=== PATIENT | female | born 1980 | race Caucasian/White ===

== ENCOUNTER 2017-06-02 07:51 | Emergency (ER) | payer BC, OTHER ==
[2017-06-02] MEDS ORDERED: methylPREDNISolone 125 MG* 2 ML VIAL IV ONE (08:55)
[2017-06-02] MEDS: NS 0.9% 1000 ML* 1,000 ML IV ONE ×2 (08:58→10:50)
[2017-06-02 09:32] LABS: Hematocrit 39 % (35-47); Mean Corpuscular HGB Conc 33 g/dl (31-36); Mean Corpuscular Hemoglobin 29 pg (27-31); Mean Corpuscular Volume 86 fL (80-97); Mean Platelet Volume 8 um3 (7.4-10.4); Red Blood Count 4.51 10^6/ul (4.0-5.4); Red Cell Distribution Width 14 % (10.5-15); White Blood Count 17.5 10^3/ul (3.5-10.8)
[2017-06-02 09:41] LABS: ALT 11 U/L (7-52); AST 12 U/L (13-39); Albumin 4.1 g/dL (3.2-5.2); Alkaline Phosphatase 121 U/L (34-104); Anion Gap 7 mmol/L (2-11); BUN/Creatinine Ratio 14.5 (8-20); Blood Urea Nitrogen 12 mg/dL (6-24); C Reactive Protein 95.32 mg/L (< 5.00); CO2 Carbon Dioxide 30 mmol/L (22-32); Calcium 9.3 mg/dL (8.6-10.3); Chloride 100 mmol/L (101-111); Creatine Kinase 57 U/L (10-223); EGFR African American 100.6 (>60); EGFR Non-African American 78.2 (>60); Globulin 3.4 g/dL (2-4); Glucose 99 mg/dL (70-100); Potassium 3.5 mmol/L (3.5-5.0); Sodium 137 mmol/L (133-145); Total Protein 7.5 g/dL (6.4-8.9)
[2017-06-02 09:45] LABS: Troponin I 0.01 ng/mL (<0.04)
--- NOTE | 2017-06-02 09:59 | RAD ---
HISTORY: Cough, fever, shortness of breath COMPARISONS: None VIEWS: 4: Frontal dual-energy and lateral views of the chest. FINDINGS: CARDIOMEDIASTINAL SILHOUETTE: The cardiomediastinal silhouette is normal. KALYAN: The kalyan are normal. PLEURA: The costophrenic angles are sharp. No pleural abnormalities are noted. LUNG PARENCHYMA: The lungs are clear. ABDOMEN: The upper abdomen is clear. There is no subphrenic gas. BONES AND SOFT TISSUES: No bone or soft tissue abnormalities are noted. OTHER: None. IMPRESSION: NO ACTIVE CARDIOPULMONARY DISEASE.
[2017-06-02] MEDS ORDERED: Azithromycin IV(*) 500 MG in NS 0.9% 250 ML* 250 ML IVPB ONE (10:34)
[2017-06-02] MEDS ORDERED: cefTRIAXone(*) 1 GM in NS 0.9% 50 ML* 50 ML IVPB ONE (10:34)
[2017-06-02] MEDS ORDERED: Ketorolac INJ* 30 MG/ML 1 ML VIAL IV PUSH ONE (10:40)
[2017-06-02 11:31] LABS: Erythrocyte Sed Rate 66 mm/Hr (0-14)
[2017-06-02 13:47] VITALS: BP 107/60
--- NOTE | 2017-06-02 13:51 | ED ---
Chano Kendrick Gabriel, scribed for Dorinda Mckeon MD on 06/02/17 at 0846 . HPI Febrile Illness - HPI Summary HPI Summary: This patient is a 36 year old F presenting to [facility] accompanied by her mother with a chief complaint of a sore throat since yest, and cough, congestion and fever since 05/25/17. The patient rates the pain 6/10 in severity but 10/10 on swallowing. Patient reports fever, general malaise, and nonproductive cough. Patient was seen at [facility] on 05/25/17 and diagnosed with bronchitis. She was given benzonatate, flovent inhaler, and albuterol inhaler from [facility]. She states they have not alleviated her symptoms. Pt takes Triam/HTZ as a diuretic for leg swelling, but did not take it today. She has not had her flu shot this year. - History of Current Complaint Chief Complaint: EDUpperRespComplaint Time Seen by Provider: 06/02/17 08:29 Hx Obtained From: Patient Onset/Duration: Started Days Ago - [address], one week for cough, fever, Atraumatic, Still Present Timing: Constant, Lasting Days Temperature: 100.3 F Initial Severity: Moderate Current Severity: Moderate Pain Intensity: 6 Pain Scale Used: 0-10 Numeric Aggravating Factors: Other: - swallowing Alleviating Factors: Nothing Associated Signs and Symptoms: Cough, Sore Throat, Other: - fever, general malaise, and nonproductive cough - Allergy/Home Medications Allergies/Adverse Reactions: Allergies Allergy/AdvReac Type Severity Reaction Status Date / Time No Known Allergies Allergy Verified 06/02/17 07:52 PMH/Surg Hx/FS Hx/Imm Hx Previously Healthy: Yes Cardiovascular History: Denies: Hx Cardiomegaly, Hx Congenital Heart Disease, Hx Congestive Heart Failure Respiratory History: Denies: Hx Asthma, Hx Chronic Obstructive Pulmonary Disease (COPD) - Surgical History Surgery Procedure, Year, and Place: 2 c sections Infectious Disease History: No Infectious Disease History: Denies: Traveled Outside the [place] in Last 30 Days - Family History Known Family History: Positive: Cardiac Disease, Hypertension, Other - cancer - Social History Alcohol Use: Rare Hx Substance Use: No Substance Use Type: Reports: None Hx Tobacco Use: No Smoking Status (MU): Never Smoked Tobacco Review of Systems Positive: Fever, Other - general malaise Positive: Sore Throat Cardiovascular: Negative Positive: Cough Gastrointestinal: Negative Neurological: Negative Psychological: Normal All Other Systems Reviewed And Are Negative: Yes Physical Exam - Summary Physical Exam Summary: Appearance: Ill-appearing, no pain distress, Well-nourished, [employer] cough Skin: Warm, color reflects adequate perfusion Head: Normal Head/Face appearance Eyes: Conjunctiva clear ENT: Tonsils are swollen bilaterally but no exudate, anterior bilateral cervical lymphadenopathy Neck: Supple, LN as above Respiratory: Lungs clear, Normal breath sounds, no respiratory distress Cardio: RRR, No murmur, pulses normal, brisk capillary refill Abdomen: soft, nontender Musculoskeletal: Strength Intact/ ROM intact, no calf tenderness or edema Neuro: Alert, muscle tone normal,facial symmetry, speech normal, sensory/motor intact Psych: normal Triage Information Reviewed: Yes Vital Signs On Initial Exam: Initial Vitals Temp Pulse Resp BP Pulse Ox 99.4 F 110 17 119/68 97 06/02/17 07:52 06/02/17 07:52 06/02/17 07:52 06/02/17 07:52 06/02/17 07:52 Vital Signs Reviewed: Yes Diagnostics - Vital Signs Vital Signs Temp Pulse Resp BP Pulse Ox 06/02/17 07:52 99.4 F 110 17 119/68 97 - Laboratory Result Diagrams: 06/02/17 08:45 06/02/17 08:45 Lab Statement: Any lab studies that have been ordered have been reviewed, and results considered in the medical decision making process. - Radiology CXR Radiology Interpretation Completed By: Radiologist - NO ACTIVE CARDIOPULMONARY DISEASE. ED physician has reviewed this radiology report. - EKG 1051 Cardiac Rate: NL EKG Rhythm: Sinus Rhythm - at [address] Segment: Non-Specific EKG Interpretation: Q in 3, axis is -29, nml QTc, nml AV/IV conduction Re-Evaluation - Re-Evaluation First Eval Re-Evaluation Time: 14:00 Change: Improved - feels better after fluids and first doses of IV antibiotics. Course/Dx - Course Assessment/Plan: An EKG reveals Q in 3, axis -29, nml QTc, nml AV/IV conduction. CXR reveals, per radiologist, NO ACTIVE CARDIOPULMONARY DISEASE. rapid strep neg. 10:03 Meets SIRS criteria, possible sepsis because she is tachycardic and her temp is 100.3 and wbc count is 17.3. In the ED course the patient was given toradol, solumedrol, IV fluids, ceftriaxone, and azithromycin. Pt is improved after all of the above. Not septic. Patient will be discharged with prescription for cephalexin and azithromycin, treatment for CAP, continue inhalers, and follow up from Dr. Espino. The patient and mother are agreeable with this plan. - Febrile Illness Differential Diagnoses: Fever of Unknown Origin, Pneumonia, Sepsis, Other: - bronchitis - Diagnoses Provider Diagnoses: Bronchitis, SIRS criteria , Pharyngitis Discharge - Discharge Plan Condition: Stable Disposition: HOME Prescriptions: Azithromycin TAB* [Zithromax TAB (Z-EDGAR) 250 mg #6 tabs] 250 mg PO DAILY #4 tab Cephalexin CAP* [Keflex 500 CAP*] 500 mg PO QID #40 cap predniSONE TAB* [Deltasone TAB*] 40 mg PO DAILY #10 tab Patient Education Materials: Cephalexin (By mouth), Azithromycin (By mouth), Acute Bronchitis (ED), Bronchospasm (ED) Forms: *Work Release Referrals: Mariangel Whatley MD [Medical Doctor] - 2 Days Additional Instructions: Your white blood cell count was 17.5 which is very elevated, and you have fever and fast heart rate and rapid breathing in the ER. We gave you IV steroids and IV ceftriaxone and IV azithromycin. We are continuing these medications as an outpatient. Your xray did not show actual pneumonia, but we are treating this as clinical pneumonia because of the signs of sepsis and infection that you had. You should have definite follow up with Dr. Whatley in 1-2 days. Call her today to arrange the follow up. Return to the ER if you have new or worsening symptoms. The documentation as recorded by the Chano jerez Gabriel accurately reflects the service I personally performed and the decisions made by , Dorinda Mckeon MD.
[2017-06-02 14:25] LABS: Urine Bacteria Absent (Absent); Urine Bilirubin Negative (Negative); Urine Glucose Negative (Negative); Urine Nitrite Negative (Negative)
== END 2017-06-02 14:21 | disposition home or self-care (01) ==
LOC: ED 07:51
DX: R65.10 Systemic inflammatory response syndrome (SIRS) of non-infectious origin without acute organ dysfunction (principal); J40 Bronchitis, not specified as acute or chronic; R50.9 Fever, unspecified; J02.9 Acute pharyngitis, unspecified
CPT/HCPCS: 36415; 71020; 80053; 81003; 82550; 82553; 83605; 83880; 84484; 84702; 85025; 85379; 85610; 85652; 86140; 87040; 87502; 87651; 93005; 96374; 96375; 99283; J0456; J0696; J1885; J2930

== ENCOUNTER 2017-08-29 09:14 | Emergency (ER) | payer BC ==
[2017-08-29 09:21] VITALS: BP 118/71
--- NOTE | 2017-08-29 09:46 | UC ---
Respiratory Complaint HPI - HPI Summary HPI Summary: 36 yo WF c/o pleuritic CP with cough associated with green sputum with onset of URI 2 weeks ago, left ear pain also. - History of Current Complaint Chief Complaint: UCGeneralIllness Stated Complaint: SORE THROAT, AND COUGH Time Seen by Provider: 08/29/17 09:28 Hx Obtained From: Patient ?: No Onset/Duration: Lasting Days Severity Initially: Moderate Severity Currently: Moderate Pain Intensity: 8 - Allergies/Home Medications Allergies/Adverse Reactions: Allergies Allergy/AdvReac Type Severity Reaction Status Date / Time No Known Allergies Allergy Verified 08/29/17 09:21 PMH/Surg Hx/FS Hx/Imm Hx Previously Healthy: Yes - Surgical History Surgical History: Yes Surgery Procedure, Year, and Place: 2 c sections - Family History Known Family History: Positive: Cardiac Disease, Hypertension, Other - cancer - Social History Alcohol Use: Occasionally Substance Use Type: None Smoking Status (MU): Never Smoked Tobacco - Immunization History Most Recent Tetanus Shot: "I don't remember" Review of Systems Constitutional: Chills Skin: Negative Eyes: Negative ENT: Ear Ache Respiratory: Cough Cardiovascular: Negative Gastrointestinal: Negative Genitourinary: Negative Motor: Negative Neurovascular: Negative Musculoskeletal: Negative Neurological: Negative Psychological: Negative All Other Systems Reviewed And Are Negative: Yes Physical Exam Triage Information Reviewed: Yes Vital Signs: Initial Vital Signs Temp 36.7 C 08/29/17 09:16 Pulse 88 08/29/17 09:16 Resp 18 08/29/17 09:16 BP 118/71 08/29/17 09:16 Pulse Ox 99 08/29/17 09:16 Eye Exam: Normal ENT Exam: Normal ENT: Positive: TM red - LEFT, NO effusion Dental Exam: Normal Neck exam: Normal Neck: Positive: Enlarged Nodes @ - and tenderness anterior cervical and posterior auricular LN B/L Respiratory: Positive: Rhonchi Cardiovascular Exam: Normal Abdominal Exam: Normal Musculoskeletal Exam: Normal Neurological Exam: Normal Psychological Exam: Normal Skin Exam: Normal UC Diagnostic Evaluation - Laboratory O2 Sat by Pulse Oximetry: 99 Respiratory Course/Dx - Course Course Of Treatment: rapid strep neg - Differential Dx/Diagnosis Provider Diagnoses: acute bronchitis. left OM Discharge - Discharge Plan Condition: Stable Disposition: HOME Prescriptions: Azithromycin TAB* [Zithromax TAB (Z-EDGAR) 250 mg #6 tabs] 2 tab PO .TODAY, THEN 1 DAILY #1 edgar Patient Education Materials: Ear Infection (ED), Acute Bronchitis (ED) Referrals: Mariangel Whatley MD [Primary Care Provider] - Additional Instructions: Mucinex DM over the counter for cough and take antibiotics as directed
== END 2017-08-29 09:50 | disposition home or self-care (01) ==
LOC: UCEAST 09:14
DX: J20.9 Acute bronchitis, unspecified (principal); H66.92 Otitis media, unspecified, left ear
CPT/HCPCS: 87651; 99212; G0463

== ENCOUNTER 2017-10-20 18:04 | Emergency (ER) | payer BC ==
[2017-10-20 18:19] VITALS: BP 112/55
--- NOTE | 2017-10-20 19:32 | UC ---
Hand/Wrist HPI - HPI Summary HPI Summary: Patient is an otherwise healthy 37-year-old female presenting to the with chief complaint of left hand swelling and wrist pain with worsening pain at the base of the left thumb. 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 She is noticed worsening symptoms over the past several weeks as she has been doing this job more frequently. She has never been diagnosed with an overuse injury or carpal tunnel. She has not taken anything for relief, including ibuprofen and ice. The hand has a mild amount of swelling to it, but she denies any range of motion issues including flexion and extension and pronation and supination. - History Of Current Complaint Chief Complaint: UCUpperExtremity Stated Complaint: HAND INJURY Time Seen by Provider: 10/20/17 18:13 Hx Obtained From: Patient Hx Last Menstrual Period: 10/09/17 ?: No Onset/Duration: Sudden Onset Severity Initially: Mild Severity Currently: Mild Pain Intensity: 2 Pain Scale Used: 0-10 Numeric Character Of Pain: Aching Aggravating Factor(s): Movement, Lifting, Flexion, Extension, Internal/External Rotation Alleviating Factor(s): Rest, Ice Associated Signs And Symptoms: Positive: Swelling Related History: Dominant Hand Right - Risk Factors Compartment Syndrome Risk Factors: Pain - Allergies/Home Medications Allergies/Adverse Reactions: Allergies Allergy/AdvReac Type Severity Reaction Status Date / Time No Known Allergies Allergy Verified 08/29/17 09:21 Home Medications: Home Medications Omeprazole CAP* [Prilosec CAP* 20 MG] 40 mg PO PRN 10/20/17 [History] Triamterene/HCTZ 37.5-25 MG* [Dyazide CAP*] 1 cap PO DAILY 10/20/17 [History Confirmed 10/20/17] PMH/Surg Hx/FS Hx/Imm Hx Previously Healthy: Yes - Surgical History Surgical History: Yes Surgery Procedure, Year, and Place: 2 c sections - Family History Known Family History: Positive: Cardiac Disease, Hypertension, Other - cancer - Social History Occupation: Employed Full-time Lives: With Family Alcohol Use: Occasionally Substance Use Type: None Smoking Status (MU): Never Smoked Tobacco - Immunization History Most Recent Tetanus Shot: "I don't remember" Review of Systems Constitutional: Negative Skin: Negative Respiratory: Negative Cardiovascular: Negative Motor: Other - There is no decreased range of motion or weakness noted Neurovascular: Other - No decreased sensation or decreased pulses bilaterally, however positive Otilia test Musculoskeletal: Negative Neurological: Negative Is Patient Immunocompromised?: No All Other Systems Reviewed And Are Negative: Yes Physical Exam Triage Information Reviewed: Yes Appearance: Well-Appearing, Well-Nourished Vital Signs: Initial Vital Signs Temp 97.9 F 10/20/17 18:14 Pulse 79 10/20/17 18:14 Resp 16 10/20/17 18:14 BP 112/55 10/20/17 18:14 Pulse Ox 98 10/20/17 18:14 Vital Signs Reviewed: Yes Eye Exam: Normal Eyes: Positive: Conjunctiva Clear Neck: Positive: Supple, No Lymphadenopathy Respiratory Exam: Normal Respiratory: Positive: Chest non-tender, Lungs clear Cardiovascular Exam: Normal Cardiovascular: Positive: RRR Musculoskeletal Exam: Normal Musculoskeletal: Positive: Strength Intact, Other: - Positive Otilia test Psychological: Positive: Normal Response To Family Skin Exam: Normal Hand/Wrist Course/Dx - Course Course Of Treatment: Patient is evaluated for possible overuse injury. She has pinpoint tenderness over the radial styloid with the side up with his wrist placed in neutral position. Positive Otilia test. This is not appear to be osteoarthritis of the TMC joint due to her overuse activity. There is no ganglia appreciated. I believe she has de quervain tenosynovitis secondary to overuse d/t work functions. I will send her to Dr. Hardy for further evaluation, but in the meantime have given her a cock-up splint, encouraged ibuprofen and ice. Most importantly, she understands to rest the area and not return to the same job function. - Differential Dx/Diagnosis Provider Diagnoses: de quervain tenosynovitis Discharge - Sign-Out/Discharge Documenting (check all that apply): Discharge/Admit/Transfer - Discharge Plan Condition: Stable Disposition: HOME Patient Education Materials: DeMarquiservmitesh Carlson (DC) Referrals: Mariangel Whatley MD [Primary Care Provider] - lEder Hardy MD [Medical Doctor] - Additional Instructions: Cock up splint Ibuprofen 600mg three times daily ice to the area Rest Do not continue to repeat the same behaviors of the overuse injury - Billing Disposition and Condition Condition: STABLE Disposition: HOME
== END 2017-10-20 18:55 | disposition home or self-care (01) ==
LOC: UCEAST 18:04
DX: M65.4 Radial styloid tenosynovitis [de Quervain] (principal)
CPT/HCPCS: 99212; G0463

== ENCOUNTER 2018-03-21 10:10 | Day surgery (SDC) | payer BC ==
[~2018-03-21 10:10] MED LIST: Buffered Lidocaine 0.9% SYRIN* 5 ML/SYR SYRINGE INTRADERM ONE
[2018-03-21] MEDS ORDERED: Propofol* 10 MG/ML 20 ML BTL IV PUSH ONE (11:17)
[2018-03-21] MEDS ORDERED: Lidocaine 2% PF * 5 ML VIAL ONE (11:17)
[2018-03-21] MEDS ORDERED: Bupivacaine 0.25% SDV* 30 ML ONE (11:48)
[2018-03-21] MEDS ORDERED: Midazolam* 1 MG/ML 2 ML VIAL (2 MG) ONE ×3 (12:34→13:17)
[2018-03-21] MEDS ORDERED: Ondansetron INJ* 2 MG/ML VIAL IV PRN (13:07)
[2018-03-21] MEDS ORDERED: Naloxone* 0.4 MG/ML 1 ML VIAL IV PRN (13:07)
[2018-03-21] MEDS ORDERED: Ketorolac INJ* 30 MG/ML 1 ML VIAL IV PRN (13:07)
[2018-03-21] MEDS ORDERED: Acetaminophen IV 1GM/100ML * 1,000 MG/100 ML VIAL IVPB ONE (13:07)
[2018-03-21] MEDS ORDERED: KETAMINE HCL* 50 MG/ML 10 ML VIAL ONE (13:11)
[2018-03-21 14:02] VITALS: BP 112/68
[2018-03-21] MEDS ORDERED: Morphine VIAL* 10 MG/ML 1 ML VIAL ONE (15:50)
--- NOTE | 2018-03-22 08:58 | OP ---
DATE OF OPERATION: 03/21/18 [facility] DATE OF : 82 SURGEON: Elder Hardy MD MANAGER PLANNING: SARAH Michel ANESTHESIOLOGIST: Dr. Dunaway. ANESTHESIA: Local MAC. PRE-OP DIAGNOSES: 1. Left trigger thumb. 2. Left thumb metacarpophalangeal joint, radial sesamoiditis. POST-OP DIAGNOSES: 1. Left trigger thumb. 2. Left thumb metacarpophalangeal joint, radial sesamoiditis. OPERATIVE PROCEDURE: 1. Left trigger thumb release. 2. Excision of left thumb metacarpophalangeal joint radial sesamoid bone. INDICATIONS: Norma has had pain in this area for quite some time. She has always been very tender over the A1 willam or even more so over the radial sesamoid bone. We have tried an injection. Ultimately, the pain keeps persisting. She understands the risks and benefits and elected to proceed. ESTIMATED BLOOD LOSS: 2 mL. COMPLICATIONS: None. FINDINGS: See above and below. DESCRIPTION OF PROCEDURE: Norma was seen in the preoperative holding area. The correct side, site, and procedure were identified. We came to the operating room where she was positioned. We had a time out. I infiltrated the operative area with 0.25% Marcaine. The arm was then prepped and draped in the usual fashion and a time-out was performed. The arm was exsanguinated with the Esmarch and the tourniquet inflated to 250 mmHg. I raised a V-shaped flap, radially based flap over the MCP joint. Full thickness flaps were raised off the tendon sheath. The digital nerves were identified and protected throughout the case. I then incised the A1 willam longitudinally. After the A1 willam was released, I went ahead and used a Towns blade to release the soft tissue off of the radial sesamoid bone. This came out in its entirety. It was very flattened and eburnated. The defect was closed with the 3 -0 Ethibond suture. The wound was irrigated out. Skin was closed with 4-0 nylon suture. Soft dressings were applied. Tourniquet was deflated and she was taken to the recovery room in stable condition. [id number]/CPS #: [id number] [facility]
== END 2018-03-21 14:11 | disposition home or self-care (01) ==
LOC: OR 10:10
PROVIDERS: ATTEND Orthopaedic Surgery Hand Surgery
DX: M65.312 Trigger thumb, left thumb (principal); M25.842 Other specified joint disorders, left hand; F41.8 Other specified anxiety disorders
CPT/HCPCS: 81025; 88304; 88311; J2250; J2270; J2704